=== PATIENT | male | born 2005 | race Caucasian/White ===

== ENCOUNTER 2024-07-19 20:20 | Emergency (ER) | payer OTHER ==
[2024-07-19 20:27] VITALS: BP 111/70; PULSE 106; RESP 18; TEMP 99; BMI 25.8
[2024-07-19] MEDS ORDERED: IBUPROFEN 400 MG TABLET (FP) PO ONE (21:12)
[2024-07-19] MEDS ORDERED: ALBUTEROL SO4 HFA INHALER IH ONE (21:12)
[2024-07-19] MEDS: IBUPROFEN 400 MG TABLET (FP) PO ONE (21:12)
[2024-07-19] MEDS: ALBUTEROL SO4 HFA INHALER IH ONE (21:12)
== END 2024-07-19 21:47 | disposition home or self-care (01) ==
LOC: JERFT 20:20
DX: R05.9 Cough, unspecified (principal); R09.81 Nasal congestion; M79.10 Myalgia, unspecified site; R50.9 Fever, unspecified; J06.9 Acute upper respiratory infection, unspecified
CPT/HCPCS: 99283-25